=== PATIENT | female | born 1950 | race Caucasian/White ===

== ENCOUNTER 2018-01-14 12:48 | Outpatient (CLI) | payer OTHER, MEDICARE | END 2018-01-14 12:49 | disposition home or self-care (01) | LOC: BICMRI 12:48 | PROVIDERS: ATTEND Orthopaedic Surgery | DX: M25.561 Pain in right knee (principal); S83.241A Other tear of medial meniscus, current injury, right knee, initial encounter; M75.91 Shoulder lesion, unspecified, right shoulder ==

== ENCOUNTER 2018-01-24 13:26 | Outpatient (CLI) | payer OTHER, MEDICARE ==
[2018-01-24 14:57] LABS: Hemoglobin 13.7 g/dL (12.0-16.0); Mean Corpuscular HGB CONC 32.5 g/dL (32.0-36.0); Mean Corpuscular Volume 83.1 fl (81.0-99.0); Mean Platelet Volume 6.8 fL (7.4-10.4); Platelet Count 237 thou/uL (130-400); RBC Distribution Width 13.1 % (11.5-14.5); Red Blood Cell (RBC) Count 5.07 mill/uL (4.20-5.40); White Blood Cell (WBC) Count 5.6 thou/uL (4.8-10.8)
[2018-01-24 15:23] LABS: Anion Gap 12 mmol/L (10-20); BUN (Urea Nitrogen) 18 mg/dL (9.8-20.1); Calc. Creatinine Clearance 0 mL/min (70-130); Calcium 10.1 mg/dL (7.8-10.44); Carbon Dioxide 31 mmol/L (23-31); Chloride 102 mmol/L (98-107); Estimated GFR-MDRD 63; Glucose 89 mg/dL (80-115); Sodium 141 mmol/L (136-145)
--- NOTE | 2018-01-27 17:30 | EKG ---
Test Reason : Blood Pressure : / mmHG Vent. Rate : 081 BPM Atrial Rate : 081 BPM P-R Int : 162 ms QRS Dur : 078 ms QT Int : 392 ms P-R-T Axes : 070 052 049 degrees QTc Int : 455 ms Normal sinus rhythm Normal EKG When compared with ECG of 08-APR-2017 08:29, No significant change was found Confirmed by DR. Hitesh CURRY ([id number]) on 01/27/2018 5:29:49 PM Referred By: JENNIFER Confirmed By:DR. Hitesh CURRY
== END 2018-01-24 13:27 | disposition home or self-care (01) ==
LOC: LABBT 13:26
PROVIDERS: ATTEND Orthopaedic Surgery
DX: Z01.812 Encounter for preprocedural laboratory examination (principal); Z01.810 Encounter for preprocedural cardiovascular examination; S83.241A Other tear of medial meniscus, current injury, right knee, initial encounter
CPT/HCPCS: 80048; 85027; 93005; 93010

== ENCOUNTER 2018-01-26 06:08 | Day surgery (SDC) | payer OTHER, MEDICARE ==
[2018-01-24 13:38] VITALS: BMI 33.2
--- NOTE | 2018-01-25 12:55 | HP ---
HISTORY OF PRESENT ILLNESS: The patient is a 67-year-old female with a 1 month history of problems w ith her right knee. She felt a pop in her right knee getting out of her vehicle. She has had progre ssive pain and difficulty walking despite rest, restriction of activities and use of antiinflammatory medications. Her symptoms are similar to symptoms she had in her left knee which required arthrosco pic surgery several years ago. PAST MEDICAL HISTORY: The patient is otherwise in good health, 18 months ago, she had 2 surgeries on her right saphenous vein by Dr. Fuentes. She has a history of hypertension, reflux, asthma and pr evious breast carcinoma. PAST SURGICAL HISTORY: She has had tubal ligation, lumpectomy, carpal tunnel release, and previous l eft knee arthroscopy. CURRENT MEDICATIONS: Albuterol, Crestor, lisinopril, Singulair, Flonase, multivitamins. ALLERGIES: She is allergic to LATEX. FAMILY HISTORY/SOCIAL HISTORY/REVIEW OF SYSTEMS: Otherwise unremarkable. PHYSICAL EXAMINATION: GENERAL: Reveals a healthy heavyset female. HEENT: Unremarkable. NECK: Supple. CHEST: Clear. HEART: Regular rate and rhythm. ABDOMEN: Soft, nontender. PELVIC/RECTAL/BREAST: Exams are deferred. EXTREMITIES: Pertinent findings to the right knee. There is slight puffiness and effusion. There i s normal alignment. There is tenderness over the medial joint line, pain with Remy's maneuver. Range of motion is 0-120 degrees. There is no instability. There are palpable distal pulses. There is a right antalgic gait. Neurovascular exam is intact. LABORATORY AND X-RAY FINDINGS: X-rays of the right knee revealed mild degenerative changes. MRI sca n of the right knee reveals mild degenerative changes most marked at the patellofemoral joint and a t ear of the posterior horn of the medial meniscus. IMPRESSION: Internal derangement of right knee with medial meniscal tear, possible component of dege nerative joint disease. PLAN: Arthroscopy right knee with partial medial meniscectomy and/or debridement and shaving. The n ature of the surgery, length of recovery, and potential complications such as infection, loss of elizabeth on, incomplete relief, thromboembolic phenomenon, neurovascular injury, post-traumatic degenerative a rthritis, recurrent tear and need for additional treatment or repeat surgery have been discussed in d etail.
[2018-01-26] MEDS ORDERED: CEFAZOLIN/Water 2 GM/20 ML SYRINGE ONE (06:43)
[2018-01-26] MEDS ORDERED: Midazolam HCl 2 mg/2 ml Vial ONE (06:44)
[2018-01-26] MEDS ORDERED: Bupivacaine 0.25% HCL 30 ML VIAL ONE (06:55)
[2018-01-26] MEDS ORDERED: Bupivacaine HCl 0.5%/Epinephrine 1:200,000/PF 30 ml Vial ONE (07:03)
[2018-01-26] MEDS ORDERED: Fentanyl 250 MCG/5 ML VIAL ONE (07:30)
--- NOTE | 2018-01-26 09:17 | OP ---
DATE OF SURGERY: 02/05/2018 SURGEON: Migue Nazario M.D. ANESTHESIA: General. PREOPERATIVE DIAGNOSIS: Medial meniscal tear, right knee. POSTOPERATIVE DIAGNOSES: Medial meniscal tear, right knee plus mild degenerative arthritis. PROCEDURES PERFORMED: Arthroscopy right knee with partial medial meniscectomy. OPERATIVE FINDINGS: Examination under anesthesia revealed the knee to be stable. At arthroscopy, th ere was a moderate effusion. There was grade II and very early grade III changes in the central port ion of patella. No areas of exposed bone. There were some minimal grade II changes of the weightbea ring surface of the medial femoral condyle. There was a complex wound tear of the posterior horn of medial meniscus. ACL was intact. Lateral meniscus was intact. There was some minimal fraying of th e free border of the meniscus which I left as is. The bulk of the meniscus was intact to probing. NARRATIVE REPORT: After satisfactory anesthesia was induced in supine position, the patient was plac ed in a leg anne and prepped and draped in routine manner. The right leg was elevated, exsanguinat ed with an Esmarch bandage, the tourniquet inflated to 300 mmHg. Vincent arthroscope was introduced into the anterolateral portal, probe through an anteromedial portal, and inflow and outflow accomplis hed through the scope using the [email or web address] arthroscopy pump. Arthroscopy was carried out and the above findings were noted. All findings were documented with the video printer and hard copies were made, but because of camera malfunction the pictures of the medial meniscus prior to meniscectomy were not taken. The posterior horn of the medial meniscus and the root tear were debrided with the use of bas ket forceps and motorized shaver and the remaining rim contoured and probed and found to be stable. The slight fraying of the medial femoral condyle and the undersurface of patella was debrided with a motorized shaver. The scope was introduced into the anteromedial portal and all compartments visuali zed. No additional pathology found. The knee was copiously irrigated through the scope and all inst ruments were then withdrawn. Twenty mL of 0.5% Marcaine with epinephrine was instilled into the knee joint, an additional 10 mL injected about the portal sites. The portal sites were closed with 3-0 n ylon. A sterile bulky compressive dressing was applied and the tourniquet deflated after 21 minutes. The foot promptly pinked up. The patient was awakened, taken to recovery room in stable condition. There were no apparent intraoperative complications. The estimated blood loss was negligible. The patient will be discharged home in satisfactory condition. He was instructed on ice, elevation, use of crutches or walker, and home exercise program with physical therapy per department. She was g yanelien a prescription for [place] 5 for pain, 40 tablets. She will be rechecked in my office in - da ys or sooner if there are any problems prior to that time.
== END 2018-01-26 10:20 | disposition home or self-care (01) ==
LOC: SDC 06:08
PROVIDERS: ATTEND Orthopaedic Surgery
PROC: 0SBC4ZZ Excision of Right Knee Joint, Percutaneous Endoscopic Approach (ICD-10-PCS; principal; 2018-01-26)
DX: S83.241A Other tear of medial meniscus, current injury, right knee, initial encounter (principal); M17.11 Unilateral primary osteoarthritis, right knee; I10 Essential (primary) hypertension; K21.9 Gastro-esophageal reflux disease without esophagitis; J45.909 Unspecified asthma, uncomplicated; E78.5 Hyperlipidemia, unspecified; H04.129 Dry eye syndrome of unspecified lacrimal gland; H26.9 Unspecified cataract; Z79.82 Long term (current) use of aspirin; Z79.51 Long term (current) use of inhaled steroids; Z79.899 Other long term (current) drug therapy; Z91.040 Latex allergy status; Z88.6 Allergy status to analgesic agent; Z98.890 Other specified postprocedural states
CPT/HCPCS: G8978-GP-CJ; G8979-GP-CJ; G8980-GP-CJ; J0670; J2250; J3010; S0020

== ENCOUNTER 2018-04-22 17:50 | Emergency (ER) | payer OTHER, MEDICARE ==
[2018-04-22] MEDS ORDERED: Ketorolac Tromethamine 30 MG/ML VIAL ONE (18:17)
--- NOTE | 2018-04-22 18:43 | RAD ---
LEFT KNEE: 04/22/18 Four views. HISTORY: History of arthritis. Left knee pain. Insect bite. COMPARISON: 02/19/15. There are mild degenerative changes present. There is mild loss of medial joint space and mild spurri ng from the medial joint space, similar to the prior exam. No acute osseous abnormality. no joint eff usion. IMPRESSION: Mild degenerative changes of the left knee appears similar to the prior exam. POS: [facility]
[2018-04-25 09:10] LABS: Lyme IgG/IgM AB <0.91 ISR (0.00-0.90)
== END 2018-04-22 19:02 | disposition home or self-care (01) ==
LOC: ERS 17:50
DX: A26.0 Cutaneous erysipeloid (principal); M17.12 Unilateral primary osteoarthritis, left knee; E78.5 Hyperlipidemia, unspecified; I10 Essential (primary) hypertension; J44.9 Chronic obstructive pulmonary disease, unspecified; Z79.82 Long term (current) use of aspirin; Z79.899 Other long term (current) drug therapy
CPT/HCPCS: 36415; 86618; 96372; J1885

== ENCOUNTER 2018-08-31 13:35 | Outpatient (CLI) | payer OTHER, MEDICARE ==
[2018-08-31 14:41] LABS: #Eosinphils 0.2 thou/uL (0.0-0.7); #Lymphocytes 1.3 thou/uL (1.20-3.40); #Monocytes 0.4 thou/uL (0.11-0.59); #Neutrophils 4.1 thou/uL (1.40-6.50); %Basophils 0.3 % (0.0-1.0); %Lymphocytes 22.2 % (21.0-51.0); %Neutrophils 67.5 % (42.0-75.0); Hemoglobin 14.3 g/dL (12.0-16.0); Mean Corpuscular HGB CONC 32.8 g/dL (32.0-36.0); Mean Corpuscular Hemoglobin 27.1 pg (27.0-31.0); Mean Corpuscular Volume 82.8 fL (78.0-98.0); Mean Platelet Volume 7.2 fL (7.4-10.4); Platelet Count 239 thou/uL (130-400); RBC Distribution Width 13.2 % (11.5-14.5); Red Blood Cell (RBC) Count 5.28 mill/uL (4.20-5.40)
[2018-08-31 15:02] LABS: Anion Gap 12 mmol/L (10-20); BUN (Urea Nitrogen) 17 mg/dL (9.8-20.1); Calc. Creatinine Clearance 0 mL/min (70-130); Calcium 10.3 mg/dL (7.8-10.44); Carbon Dioxide 28 mmol/L (23-31); Chloride 105 mmol/L (98-107); Estimated GFR-MDRD 57; Glucose 102 mg/dL (80-115); Potassium 3.8 mmol/L (3.5-5.1); Sodium 141 mmol/L (136-145)
--- NOTE | 2018-08-31 15:53 | RAD ---
PA AND LATERAL CHEST: 08/31/18 HISTORY: 68-year-old female for preoperative evaluation. COMPARISON: 01/27/17. FINDINGS: Old granulomatous disease with a small granuloma calcification on the left side. Small stable area of parenchymal density in the right lateral mid lung zone. Mild biapical pleural thickening. IMPRESSION: Minimal chronic changes. No acute process. Stable from prior study. POS: [facility]
== END 2018-08-31 13:36 | disposition home or self-care (01) ==
LOC: LABBT 13:35
PROVIDERS: ATTEND Specialist
DX: Z01.818 Encounter for other preprocedural examination (principal); K62.9 Disease of anus and rectum, unspecified
CPT/HCPCS: 71046; 80048; 85025; 93005; 93010

== ENCOUNTER 2018-09-06 06:05 | Day surgery (SDC) | payer OTHER, MEDICARE ==
[2018-08-31 13:58] VITALS: BMI 31.9
[2018-09-06] MEDS ORDERED: Sodium Chloride 0.9% 100 ML ONE (06:37)
[2018-09-06] MEDS ORDERED: Ketorolac Tromethamine 30 MG/ML VIAL ONE (06:37)
[2018-09-06] MEDS ORDERED: cefOXitin 2 GM VIAL ONE (06:37)
[2018-09-06] MEDS ORDERED: Bupivacaine/Epinephrine 0.25% 30 ML VIAL ONE (07:16)
[2018-09-06] MEDS ORDERED: Lidocaine 2% Jelly 5 ML TUBE ONE (07:16)
[2018-09-06] MEDS ORDERED: HYDROmorphone 2 MG/ML VIAL ONE (07:21)
[2018-09-06] MEDS ORDERED: Fentanyl 100 MCG/2 ML VIAL ONE (07:21)
--- NOTE | 2018-09-06 08:41 | OP ---
DATE OF PROCEDURE: 09/06/2018 PREOPERATIVE DIAGNOSIS: Submucosal rectal mass. POSTOPERATIVE DIAGNOSIS: Submucosal rectal mass. OPERATION PERFORMED: Transanal excision of a submucosal rectal mass. SURGEON: Dr. Shahriar Thomas CHANNEL ROUGHER: Jose C Huffman, medical student. ANESTHESIA: General endotracheal per Jovita Noland CRNA. INDICATIONS: The patient is a 68-year-old white female. Recent colonoscopy revealed a submucosal ma ss within the rectum. She is referred for excision. This appeared to be amenable to transanal resec tion. OPERATIVE PROCEDURE IN DETAIL: Informed consent was obtained. The patient was taken to the operatin g room where general endotracheal anesthesia obtained with the patient in supine position. She was t hen placed into dorsal lithotomy using candy cane stirrups. Perianal area was trimmed of hair, prepp ed with Betadine, and draped in sterile fashion. Local anesthetic was infiltrated in a 4 quadrant in tersphincteric fashion. A digital examination revealed the palpable mobile mass posterior into the p atient's right. A bivalve speculum was utilized to visualize the lesion. It was grasped with Allis clamps. Local anesthetic was infiltrated into the mucosa and submucosa. A sharp incision around the lesion with a scalpel and scissors and primarily used electrocautery to dissect it out from within t he wall of the rectum. This was a partial thickness resection. The specimen was removed and passed off the field. The mucosal and submucosal defect was closed with a running locking suture of 3-0 Boy ryl. I then placed several interrupted [id number] sutures of 3-0 Vicryl. The closure was entir adriana hemostatic. Gelfoam was placed within the rectum. Dry gauze dressing with mesh pants was placed externally. There were no complications. The patient tolerated procedure well and was taken to rec overy in stable condition.
[2018-09-06] MEDS ORDERED: Ondansetron HCl/PF 4 MG/2 ML Vial ONE (16:57)
[2018-09-06] MEDS ORDERED: Glycopyrrolate 0.2 MG/ML 5 ML SYRINGE ONE (16:57)
[2018-09-06] MEDS ORDERED: Lidocaine 1% PF 5 ML VIAL ONE (16:57)
[2018-09-06] MEDS ORDERED: Dexamethasone 20 MG/5 ML VIAL ONE (16:57)
[2018-09-06] MEDS ORDERED: PROPOFOL 200 MG/20 ML VIAL ONE (16:57)
== END 2018-09-06 10:00 | disposition home or self-care (01) ==
LOC: SDC 06:05 → EEVIPCON 13:30
PROVIDERS: ATTEND Specialist
PROC: 0DBP7ZZ Excision of Rectum, Via Natural or Artificial Opening (ICD-10-PCS; principal; 2018-09-06)
DX: D17.79 Benign lipomatous neoplasm of other sites (principal); I10 Essential (primary) hypertension; K21.9 Gastro-esophageal reflux disease without esophagitis; J45.909 Unspecified asthma, uncomplicated; J32.9 Chronic sinusitis, unspecified; M19.90 Unspecified osteoarthritis, unspecified site; E78.5 Hyperlipidemia, unspecified; Z79.51 Long term (current) use of inhaled steroids; Z79.82 Long term (current) use of aspirin; Z79.899 Other long term (current) drug therapy; Z88.6 Allergy status to analgesic agent; Z91.040 Latex allergy status
CPT/HCPCS: 88305; J0131; J0694; J1100; J1170; J1885; J2001; J2405; J2704; J3010; J7050

== ENCOUNTER 2018-10-03 12:51 | Outpatient (CLI) | payer OTHER, MEDICARE ==
--- NOTE | 2018-10-03 14:44 | RAD ---
CHEST PA AND LATERAL: History: 68-year-old female with history of dyspnea. Comparison: 08-31-18 FINDINGS: Heart size is within normal limits. There is a small patchy of parenchymal density in the right midlu ng zone laterally which appears to be new when compared to the 08-31-18 study, possibly a small focus of pneumonitis. Old granuloma calcification on the left. No cardiomegaly. No confluent lobar pneumon ia. No pleural effusion. IMPRESSION: Small patchy density in the right midlung zone laterally, new from 08-31-18, raising concern for the possibility of a small patch of pneumonia or pneumonitis. Atherosclerosis of the aorta. Old granuloma tous disease. POS: [facility]
== END 2018-10-03 12:52 | disposition home or self-care (01) ==
LOC: BBPSJX 12:51
PROVIDERS: ATTEND Family Medicine
DX: R06.00 Dyspnea, unspecified (principal); J98.4 Other disorders of lung; I70.0 Atherosclerosis of aorta
CPT/HCPCS: 71046

== ENCOUNTER 2018-10-03 15:44 | Outpatient (CLI) | payer OTHER, MEDICARE | END 2018-10-03 15:45 | disposition home or self-care (01) | LOC: BICMAMMO 15:44 | PROVIDERS: ATTEND Nurse Practitioner Family | DX: Z12.31 Encounter for screening mammogram for malignant neoplasm of breast (principal); Z85.3 Personal history of malignant neoplasm of breast | CPT/HCPCS: 77063; 77067 ==

== ENCOUNTER 2019-02-28 07:49 | Outpatient (CLI) | payer OTHER, MEDICARE ==
--- NOTE | 2019-02-28 09:16 | BD ---
DEXA BONE DENSITY SCAN: Date: 02/28/19 COMPARISON: 09/13/15. HISTORY: Postmenopausal female undergoing screening for osteoporosis. FINDINGS: Lumbar Spine BMD (g/cm2) L1 1.033 T-Score 0.4 (previous 0.5) L2 1.041 T-Score 0.1 (previous 0.2) L3 0.922 T-Score -1.5 (previous -1.6) L4 1.013 T-Score -0.4 (previous -0.4) L1-L4 0.999 T-Score -0.4 (previous -0.4) Femoral Neck 0.695 T-Score -1.4 (previous -1.0) Total Femur 0.869 T-Score -0.6 (previous -0.6) The FRAX-WHO fracture risk assessment total is not reported as the patient is reportedly being treate d for osteoporosis. IMPRESSION: Normal lumbar spine bone mineral density. Osteopenia within the femoral neck, correlating with a mode rately increased risk for fracture. POS: [facility]
== END 2019-02-28 07:50 | disposition home or self-care (01) ==
LOC: BICMAMMO 07:49
PROVIDERS: ATTEND Nurse Practitioner Family
DX: Z13.820 Encounter for screening for osteoporosis (principal); M85.859 Other specified disorders of bone density and structure, unspecified thigh; Z78.0 Asymptomatic menopausal state
CPT/HCPCS: 77080

== ENCOUNTER 2019-08-17 14:34 | Outpatient (CLI) | payer BC, MEDICARE ==
--- NOTE | 2019-08-17 15:38 | MMO ---
Bilateral Ivory 3D Diagnostic Bilat W CAD, Bilateral MAMMO Bilat Screen [facility]. CLINICAL HISTORY: Patient is 69 years old and is seen for diagnostic exam. The patient has no family history of breast cancer. The patient has a history of Re-Excision procedure revealed intraductal carcinoma, low grade in the right breast in December, and Excisional Biopsy procedure revealed intraductal carcinoma, low grade in the right breast in December,. The patient has a history of right Lumpectomy in December, - malignant, right Excisional Biopsy in December, - malignant, right Excisional Biopsy in 2006 - benign and right Excisional Biopsy in 1995 - benign. VIEWS: The views performed were: bilateral craniocaudal with tomosynthesis; bilateral mediolateral oblique with tomosynthesis; and bilateral mediolateral with tomosynthesis. FILMS COMPARED: The present examination has been compared to prior imaging studies performed at [facility] on 09/30/2017, 10/03/2018 and 08/17/2019. This study has been interpreted with the assistance of computer-aided detection. Standard digital mammography was supplemented by the acquisition of digital breast tomosynthesis. MAMMOGRAM FINDINGS: There are scattered fibroglandular densities. Finding 1: There are stable post operative changes seen in the right breast. Finding 2: There are no mammographic or sonographic abnormalities in the areas of palpable concern. The patient is referred back to her clinician. Negative imaging findings should not preclude biopsy if clinical findings are suspicious. IMPRESSION: THERE ARE NO MAMMOGRAPHIC OR SONOGRAPHIC ABNORMALITIES IN THE AREAS OF PALPABLE CONCERN. THE PATIENT IS REFERRED BACK TO HER CLINICIAN. NEGATIVE IMAGING FINDINGS SHOULD NOT PRECLUDE BIOPSY IF CLINICAL FINDINGS ARE SUSPICIOUS. A ROUTINE FOLLOW-UP MAMMOGRAM IN 1 YEAR IS RECOMMENDED. 3B0B ACR BI-RADS Category 2 - Benign finding MAMMOGRAPHY NOTE: 1. A negative mammogram report should not delay a biopsy if a dominant of clinically suspicious mass is present. 2. Approximately 10% to 15% of breast cancers are not detected by mammography. 3. Adenosis and dense breasts may obscure an underlying neoplasm. Reported by: HIRAL RANGEL MD Electonically Signed: [id number]
--- NOTE | 2019-08-17 16:10 | ULT ---
LIMITED BILATERAL BREAST ULTRASOUND: 08/17/19 PROVIDED CLINICAL HISTORY: Bilateral palpable abnormalities. FINDINGS: Limited sonographic interrogation of the right breast in the 5 o'clock location was performed, demons trating a normal sonographic appearance to the breast parenchyma in this region. Limited sonographic interrogation of the left breast in the 5 o'clock position demonstrates normal ap pearance to the breast tissue in this region. IMPRESSION: BIRADS 2: Benign Finding(s) Routine annual screening mammography (for women over age 40). No sonographic abnormality is evident in regions of palpable concern. Negative imaging finding should not preclude further evaluation of a clinically suspicious area. The patient is referred back to her clinician. POS: [facility]
== END 2019-08-17 14:35 | disposition home or self-care (01) ==
LOC: BICMAMMO 14:34
PROVIDERS: ATTEND Nurse Practitioner Family
DX: N63.0 Unspecified lump in unspecified breast (principal); Z85.3 Personal history of malignant neoplasm of breast
CPT/HCPCS: 77063; 77066; 77067; G0279

== ENCOUNTER 2020-08-27 08:29 | Outpatient (CLI) | payer MEDICARE, OTHER ==
--- NOTE | 2020-08-27 09:00 | MMO ---
Bilateral MAMMO Bilat Screen [facility]. CLINICAL HISTORY: Patient is 70 years old and is seen for screening. The patient has no family history of breast cancer. The patient has a history of re-excision procedure revealed intraductal carcinoma, low grade in the right breast in December, and Excisional biopsy procedure revealed intraductal carcinoma, low grade in the right breast in December,. The patient has a history of right Lumpectomy in December, - malignant, right Excisional Biopsy in December, - malignant, right Excisional Biopsy in 2006 - benign and right Excisional Biopsy in 1995 - benign. VIEWS: The views performed were: bilateral craniocaudal with tomosynthesis and bilateral mediolateral oblique with tomosynthesis. FILMS COMPARED: The present examination has been compared to prior imaging studies performed at [facility] on 10/03/2018 and 08/17/2019. This study has been interpreted with the assistance of computer-aided detection. MAMMOGRAM FINDINGS: There are scattered fibroglandular densities. There are stable post-operative changes. Benign calcifications are noted bilaterally. There are no suspicious masses, suspicious calcifications, or new areas of architectural distortion. IMPRESSION: THERE IS NO MAMMOGRAPHIC EVIDENCE OF MALIGNANCY. A ROUTINE FOLLOW-UP MAMMOGRAM IN 1 YEAR IS RECOMMENDED. THE RESULTS OF THIS EXAM WERE SENT TO THE PATIENT. ACR BI-RADS Category 2 - Benign finding MAMMOGRAPHY NOTE: 1. A negative mammogram report should not delay a biopsy if a dominant of clinically suspicious mass is present. 2. Approximately 10% to 15% of breast cancers are not detected by mammography. 3. Adenosis and dense breasts may obscure an underlying neoplasm. Reported by: KANE RADFORD MD Electonically Signed: [id number]
== END 2020-08-27 08:30 | disposition home or self-care (01) ==
LOC: BICMAMMO 08:29
PROVIDERS: ATTEND Nurse Practitioner Family
DX: Z12.31 Encounter for screening mammogram for malignant neoplasm of breast (principal); Z85.3 Personal history of malignant neoplasm of breast; Z91.89 Other specified personal risk factors, not elsewhere classified; Z98.890 Other specified postprocedural states
CPT/HCPCS: 77063; 77067

== ENCOUNTER 2021-02-20 15:08 | Inpatient (IN) | payer MEDICARE, OTHER ==
[2021-02-20] MEDS ORDERED: cefTRIAXone\\ROCEPHIN 1 GM VIAL ONE (15:37)
[2021-02-20 16:10] LABS: #Basophils 0.1 thou/uL (0.0-0.2); #Eosinphils 0.5 thou/uL (0.0-0.7); #Lymphocytes 1.2 thou/uL (1.20-3.40); #Monocytes 0.7 thou/uL (0.11-0.59); #Neutrophils 6.2 thou/uL (1.40-6.50); %Basophils 0.7 % (0.0-1.0); %Eosinophils 5.3 % (0.0-10.0); %Lymphocytes 13.6 % (21.0-51.0); %Monocytes 7.6 % (0.0-10.0); %Neutrophils 72.7 % (42.0-75.0); Hemoglobin 14.3 g/dL (12.0-16.0); Mean Corpuscular HGB CONC 33.4 g/dL (32.0-36.0); Mean Corpuscular Hemoglobin 28.3 pg (27.0-31.0); Mean Corpuscular Volume 84.5 fL (78.0-98.0); Mean Platelet Volume 7.5 fL (7.4-10.4); Platelet Count 214 thou/uL (130-400); Red Blood Cell (RBC) Count 5.07 mill/uL (4.20-5.40); White Blood Cell (WBC) Count 8.5 thou/uL (4.8-10.8)
[2021-02-20] MEDS ORDERED: Vancomycin 1 GM/200 ML BAG ONE (16:23)
[2021-02-20 16:32] LABS: ALT (SGPT) 15 U/L (8-55); AST (SGOT) 19 U/L (5-34); Albumin 4.5 g/dL (3.4-4.8); Alkaline Phosphatase 70 U/L (40-110); Anion Gap 12 mmol/L (10-20); BUN (Urea Nitrogen) 21 mg/dL (9.8-20.1); Bilirubin, Total 0.6 mg/dL (0.2-1.2); CK (CPK) 188 U/L (29-168); Calc. Creatinine Clearance 0 mL/min (70-130); Calcium 9.7 mg/dL (7.8-10.44); Carbon Dioxide 30 mmol/L (23-31); Chloride 105 mmol/L (98-107); Globulin 3.2 g/dL (2.4-3.5); Glucose 94 mg/dL (80-115); Potassium 3.7 mmol/L (3.5-5.1); Protein, Total 7.7 g/dL (5.8-8.1); Sodium 143 mmol/L (136-145)
[2021-02-20] MEDS ORDERED: Ondansetron ODT 4 MG TAB PO PRN (16:53)
[2021-02-20] MEDS ORDERED: Acetaminophen 650 MG Suppository PR PRN (16:53)
[2021-02-20] MEDS ORDERED: Ondansetron PF 4 MG/2 ML Vial IVP PRN (16:53)
[2021-02-20] MEDS ORDERED: Vancomycin 1 GM in Premix Bag 1 BAG IVPB SCH (17:00)
[2021-02-20] MEDS: Sodium Chloride 0.9% 1,000 ML IV SCH (19:16)
[2021-02-20] MEDS: Albuterol Sulfate 2.5 mg/3 ml Neb NEB SCH (19:26)
[2021-02-20] MEDS: Budesonide 0.25 MG/2 ML NEB INH SCH (19:29)
[2021-02-20 19:41] VITALS: BMI 29.7
[2021-02-20] MEDS ORDERED: Vancomycin HCl 750 MG in Sodium Chloride 0.9% 250 ML 250 ML IVPB SCH (20:00)
[2021-02-21] MEDS: Albuterol Sulfate 2.5 mg/3 ml Neb NEB SCH ×4 (00:05→20:12)
[2021-02-21 02:11] LABS: SARS-CoV-2 PCR by NAA Not Detected (NotDetected)
[2021-02-21 05:54] LABS: #Eosinphils 0.4 thou/uL (0.0-0.7); #Lymphocytes 1.1 thou/uL (1.20-3.40); #Monocytes 0.6 thou/uL (0.11-0.59); %Basophils 0.1 % (0.0-1.0); %Eosinophils 5.8 % (0.0-10.0); %Lymphocytes 15.4 % (21.0-51.0); %Monocytes 8.2 % (0.0-10.0); %Neutrophils 70.5 % (42.0-75.0); Hemoglobin 11.6 g/dL (12.0-16.0); Mean Corpuscular HGB CONC 33.6 g/dL (32.0-36.0); Mean Corpuscular Hemoglobin 28.4 pg (27.0-31.0); Mean Corpuscular Volume 84.6 fL (78.0-98.0); Mean Platelet Volume 7.3 fL (7.4-10.4); Platelet Count 173 thou/uL (130-400); White Blood Cell (WBC) Count 7.1 thou/uL (4.8-10.8)
[2021-02-21 06:13] LABS: Anion Gap 10 mmol/L (10-20); BUN (Urea Nitrogen) 15 mg/dL (9.8-20.1); Calc. Creatinine Clearance 88 mL/min (70-130); Calcium 8.3 mg/dL (7.8-10.44); Carbon Dioxide 25 mmol/L (23-31); Chloride 110 mmol/L (98-107); Glucose 95 mg/dL (80-115); Potassium 3.6 mmol/L (3.5-5.1); Sodium 141 mmol/L (136-145)
[2021-02-21] MEDS: Sodium Chloride 0.9% 1,000 ML IV SCH ×2 (06:38→12:27)
[2021-02-21] MEDS: Budesonide 0.25 MG/2 ML NEB INH SCH ×2 (06:39→20:13)
[2021-02-21] MEDS ORDERED: Enoxaparin Sodium 40 MG/0.4 ML SYRINGE SC SCH (09:00)
[2021-02-21] MEDS: Acetaminophen 325 MG TAB PO PRN (13:39)
[2021-02-21] MEDS: cefTRIAXone\\ROCEPHIN 1 GM in Sodium Chloride 0.9% 100 ML IVPB SCH (15:58)
[2021-02-21] MEDS ORDERED: VANCOMYCIN 1.25 GM/250 ML BAG 1.25 GM in Premix Bag 1 BAG IVPB SCH (20:00)
[2021-02-21] MEDS: Rosuvastatin 20 MG TAB PO SCH (20:09)
[2021-02-21] MEDS: Aspirin 81 mg Enteric Coated Tablet PO SCH (20:09)
[2021-02-21] MEDS: Lisinopril 20 MG TAB PO SCH (20:09)
[2021-02-21] MEDS: diphenhydrAMINE 25 MG CAP PO PRN (20:13)
[2021-02-22] MEDS: Albuterol Sulfate 2.5 mg/3 ml Neb NEB SCH ×4 (00:38→18:37)
[2021-02-22] MEDS: Sodium Chloride 0.9% 1,000 ML IV SCH (03:53)
[2021-02-22 05:38] LABS: #Eosinphils 0.5 thou/uL (0.0-0.7); #Lymphocytes 1.2 thou/uL (1.20-3.40); #Monocytes 0.7 thou/uL (0.11-0.59); #Neutrophils 4.7 thou/uL (1.40-6.50); %Basophils 0.5 % (0.0-1.0); %Eosinophils 7.3 % (0.0-10.0); %Lymphocytes 17.1 % (21.0-51.0); %Monocytes 9.9 % (0.0-10.0); %Neutrophils 65.2 % (42.0-75.0); Hemoglobin 12.2 g/dL (12.0-16.0); Mean Corpuscular HGB CONC 33.3 g/dL (32.0-36.0); Mean Corpuscular Hemoglobin 28.2 pg (27.0-31.0); Mean Corpuscular Volume 84.8 fL (78.0-98.0); Mean Platelet Volume 7.4 fL (7.4-10.4); Platelet Count 180 thou/uL (130-400); Red Blood Cell (RBC) Count 4.34 mill/uL (4.20-5.40); White Blood Cell (WBC) Count 7.2 thou/uL (4.8-10.8)
[2021-02-22 05:58] LABS: Anion Gap 11 mmol/L (10-20); BUN (Urea Nitrogen) 13 mg/dL (9.8-20.1); Calc. Creatinine Clearance 91 mL/min (70-130); Calcium 8.7 mg/dL (7.8-10.44); Carbon Dioxide 24 mmol/L (23-31); Chloride 110 mmol/L (98-107); Glucose 98 mg/dL (80-115); Potassium 3.8 mmol/L (3.5-5.1); Sodium 141 mmol/L (136-145)
[2021-02-22] MEDS: Budesonide 0.25 MG/2 ML NEB INH SCH ×2 (06:40→18:39)
[2021-02-22] MEDS: Ascorbic Acid 500 mg Chewable Tablet PO SCH (08:53)
[2021-02-22] MEDS: diphenhydrAMINE 25 MG CAP PO PRN ×2 (09:00→20:51)
[2021-02-22] MEDS ORDERED: Lisinopril 20 MG TAB PO SCH (09:00)
[2021-02-22] MEDS: cefTRIAXone\\ROCEPHIN 1 GM in Sodium Chloride 0.9% 100 ML IVPB SCH (15:46)
[2021-02-22 19:26] LABS: Vancomycin, Trough 7.1 ug/mL
[2021-02-22] MEDS: Vancomycin 1 GM in Premix Bag 1 BAG IVPB SCH (20:49)
[2021-02-22] MEDS: Rosuvastatin 20 MG TAB PO SCH (20:50)
[2021-02-22] MEDS: Aspirin 81 mg Enteric Coated Tablet PO SCH (20:50)
[2021-02-22] MEDS: Lisinopril 20 MG TAB PO SCH (20:50)
[2021-02-22] MEDS: cycloSPORINE 0.05% Ophthalmic Droperette L EYE SCH (20:50)
[2021-02-22] MEDS: Acetaminophen 325 MG TAB PO PRN (20:51)
[2021-02-23] MEDS: Albuterol Sulfate 2.5 mg/3 ml Neb NEB SCH ×2 (00:04→08:05)
[2021-02-23 05:58] LABS: #Eosinphils 0.5 thou/uL (0.0-0.7); #Lymphocytes 1.4 thou/uL (1.20-3.40); #Monocytes 0.5 thou/uL (0.11-0.59); %Basophils 0.7 % (0.0-1.0); %Eosinophils 9.2 % (0.0-10.0); %Lymphocytes 25.1 % (21.0-51.0); Hemoglobin 11.6 g/dL (12.0-16.0); Mean Corpuscular HGB CONC 33.6 g/dL (32.0-36.0); Mean Corpuscular Hemoglobin 28.4 pg (27.0-31.0); Mean Corpuscular Volume 84.7 fL (78.0-98.0); Mean Platelet Volume 7.6 fL (7.4-10.4); Platelet Count 179 thou/uL (130-400); Red Blood Cell (RBC) Count 4.07 mill/uL (4.20-5.40); White Blood Cell (WBC) Count 5.4 thou/uL (4.8-10.8)
[2021-02-23 06:09] LABS: Anion Gap 10 mmol/L (10-20); BUN (Urea Nitrogen) 15 mg/dL (9.8-20.1); Calc. Creatinine Clearance 91 mL/min (70-130); Calcium 8.7 mg/dL (7.8-10.44); Carbon Dioxide 29 mmol/L (23-31); Chloride 108 mmol/L (98-107); Glucose 101 mg/dL (80-115); Potassium 3.7 mmol/L (3.5-5.1); Sodium 143 mmol/L (136-145)
[2021-02-23] MEDS: Budesonide 0.25 MG/2 ML NEB INH SCH (08:13)
[2021-02-23] MEDS: Vancomycin 1 GM in Premix Bag 1 BAG IVPB SCH (08:19)
[2021-02-23] MEDS: cycloSPORINE 0.05% Ophthalmic Droperette L EYE SCH (08:19)
[2021-02-23] MEDS: Ascorbic Acid 500 mg Chewable Tablet PO SCH (08:19)
[2021-02-23 13:39] VITALS: BP 156/85; TEMP 97.9
== END 2021-02-23 13:49 | disposition home or self-care (01) | DRG 603 ==
LOC: ERS 15:08 → T4-A 15:58
PROVIDERS: ADMIT Internal Medicine; ATTEND Internal Medicine
DX: L03.116 Cellulitis of left lower limb (principal); N17.9 Acute kidney failure, unspecified; E78.5 Hyperlipidemia, unspecified; Z20.822 Contact with and (suspected) exposure to COVID-19; E78.00 Pure hypercholesterolemia, unspecified; I10 Essential (primary) hypertension; M19.90 Unspecified osteoarthritis, unspecified site; J44.9 Chronic obstructive pulmonary disease, unspecified; L02.416 Cutaneous abscess of left lower limb; Z85.3 Personal history of malignant neoplasm of breast; Z90.49 Acquired absence of other specified parts of digestive tract; Z90.11 Acquired absence of right breast and nipple; Z98.51 Tubal ligation status; Z88.5 Allergy status to narcotic agent; Z91.040 Latex allergy status; Z79.82 Long term (current) use of aspirin; Z79.51 Long term (current) use of inhaled steroids; Z79.899 Other long term (current) drug therapy
CPT/HCPCS: 36415; 80048; 80053; 80202; 82550; 83605; 83615; 85025; 85610; 85730; 87040; 87635; 93005; 94640; 96365; 96366; 96367; J0696; J3370; J3490; J7050; J7611; J7626; Q0163; U0003; U0005

== ENCOUNTER 2021-09-04 15:11 | Outpatient (CLI) | payer MEDICARE | END 2021-09-04 15:12 | disposition home or self-care (01) | LOC: BICMAMMO 15:11 | PROVIDERS: ATTEND Nurse Practitioner Family | DX: Z12.31 Encounter for screening mammogram for malignant neoplasm of breast (principal); Z85.3 Personal history of malignant neoplasm of breast; Z98.890 Other specified postprocedural states; Z91.89 Other specified personal risk factors, not elsewhere classified | CPT/HCPCS: 77063; 77067 ==

== ENCOUNTER 2021-11-10 09:24 | Outpatient (CLI) | payer MEDICARE | END 2021-11-10 09:25 | disposition home or self-care (01) | LOC: RAD 09:24 | PROVIDERS: ATTEND Internal Medicine Critical Care Medicine | DX: R06.00 Dyspnea, unspecified (principal) | CPT/HCPCS: 71046 ==

== ENCOUNTER 2023-08-24 09:22 | Outpatient (CLI) | payer MEDICARE, OTHER | END 2023-08-24 09:23 | disposition home or self-care (01) | LOC: RAD 09:22 | PROVIDERS: ATTEND Internal Medicine Critical Care Medicine | DX: R06.00 Dyspnea, unspecified (principal); R91.8 Other nonspecific abnormal finding of lung field | CPT/HCPCS: 71046 ==

== ENCOUNTER 2023-09-13 15:33 | Outpatient (CLI) | payer MEDICARE, OTHER | END 2023-09-13 15:34 | disposition home or self-care (01) | LOC: BICMAMMO 15:33 | PROVIDERS: ATTEND Nurse Practitioner Family | DX: Z12.31 Encounter for screening mammogram for malignant neoplasm of breast (principal); D05.11 Intraductal carcinoma in situ of right breast; Z90.11 Acquired absence of right breast and nipple; Z91.89 Other specified personal risk factors, not elsewhere classified | CPT/HCPCS: 77063; 77067 ==

== ENCOUNTER 2023-10-22 07:34 | Outpatient (CLI) | payer MEDICARE, OTHER | END 2023-10-22 07:35 | disposition home or self-care (01) | LOC: BICULT 07:34 | PROVIDERS: ATTEND Nurse Practitioner Family | DX: K21.9 Gastro-esophageal reflux disease without esophagitis (principal); J45.42 Moderate persistent asthma with status asthmaticus; M85.89 Other specified disorders of bone density and structure, multiple sites; I10 Essential (primary) hypertension; D03.9 Melanoma in situ, unspecified; E55.9 Vitamin D deficiency, unspecified; E78.2 Mixed hyperlipidemia; H26.9 Unspecified cataract; I07.1 Rheumatic tricuspid insufficiency; I38 Endocarditis, valve unspecified; I83.90 Asymptomatic varicose veins of unspecified lower extremity; I87.2 Venous insufficiency (chronic) (peripheral); B37.2 Candidiasis of skin and nail; Z85.3 Personal history of malignant neoplasm of breast | CPT/HCPCS: 76705 ==

== ENCOUNTER 2023-11-04 07:49 | Outpatient (CLI) | payer MEDICARE, OTHER | END 2023-11-04 07:50 | disposition home or self-care (01) | LOC: BICCT 07:49 | PROVIDERS: ATTEND Nurse Practitioner Family | DX: K44.9 Diaphragmatic hernia without obstruction or gangrene (principal); I38 Endocarditis, valve unspecified; R10.84 Generalized abdominal pain; R14.0 Abdominal distension (gaseous) | CPT/HCPCS: 74177 ==

== ENCOUNTER 2024-10-03 13:23 | Outpatient (CLI) | payer MEDICARE, OTHER | END 2024-10-03 13:24 | disposition home or self-care (01) | LOC: BICMAMMO 13:23 | PROVIDERS: ATTEND Nurse Practitioner Family | DX: Z12.31 Encounter for screening mammogram for malignant neoplasm of breast (principal); Z85.3 Personal history of malignant neoplasm of breast; Z91.89 Other specified personal risk factors, not elsewhere classified; Z98.890 Other specified postprocedural states | CPT/HCPCS: 77063; 77067 ==

== ENCOUNTER 2025-10-31 15:04 | Outpatient (CLI) | payer MEDICARE, OTHER | END 2025-10-31 15:05 | disposition home or self-care (01) | LOC: BICMAMMO 15:04 | PROVIDERS: ATTEND Nurse Practitioner Family | DX: Z12.31 Encounter for screening mammogram for malignant neoplasm of breast (principal); Z85.3 Personal history of malignant neoplasm of breast; Z98.890 Other specified postprocedural states; Z91.89 Other specified personal risk factors, not elsewhere classified | CPT/HCPCS: 77063; 77067 ==